=== PATIENT | male | born 1970 | race Caucasian/White ===

== ENCOUNTER 2017-04-13 21:14 | Emergency (ER) | payer MEDICAID ==
[~2017-04-13] VITALS: Ht 170.2 cm; Wt 77.3 kg
[2017-04-13] MEDS ORDERED: FURO40I IM (21:42)
[2017-04-13] MEDS ORDERED: WARF2 PO (21:42)
[2017-04-13] MEDS ORDERED: ASPI81 PO (21:42)
[2017-04-14] MEDS ORDERED: ACETAMINOPHEN 500 MG TABLET PO ONE
[2017-04-14 02:20] LABS: BASOPHILS % (AUTO) 0.8 % (0.0-2.0); EOSINOPHILS % (AUTO) 3.1 % (1.0-6.0); HEMATOCRIT 42.7 % (41-53); HEMOGLOBIN 14.7 g/dL (13.5-17.5); LYMPHOCYTES # (AUTO) 1.7 K/uL (1.0-4.8); LYMPHOCYTES % (AUTO) 24.1 % (22.0-44.0); MEAN CORPUSCULAR HEMOGLOBIN 29.2 pg (26.0-34.0); MEAN CORPUSCULAR HGB CONC 34.3 G/dL (31.0-37.0); MEAN CORPUSCULAR VOLUME 85 fL (80-100); MONOCYTES # (AUTO) 0.7 K/uL (0.1-1.0); MONOCYTES % (AUTO) 10.4 % (2.0-9.0); NEUTROPHILS # (AUTO) 4.4 K/uL (1.8-7.7); NEUTROPHILS % (AUTO) 61.6 % (40.0-70.0); PLATELET COUNT (AUTO) 158 K/uL (150-450); RED BLOOD CELL COUNT(AUTO) 5.02 MIL/uL (4.50-5.90); RED CELL DISTRIBUTION WIDTH 13.3 % (11.5-14.5); WHITE BLOOD COUNT (AUTO) 7.2 K/uL (4.5-11.0)
[2017-04-14 02:33] LABS: INR 3.1 (0.9-1.1); PROTHROMBIN TIME 32.6 SEC (9.4-11.6)
[2017-04-14 02:34] LABS: ANION GAP 9 mmol/L (8-16); CALCIUM, TOTAL 9.2 mg/dL (8.8-10.5); CARBON DIOXIDE 28 mmol/L (22-29); CHLORIDE 101 mmol/L (98-107); CREATININE 1.02 mg/dL (0.60-1.30); GLOMERULAR FILTR. RATE CALC > 60 mL/min (>60); POTASSIUM 3.3 mmol/L (3.5-5.1); SODIUM SERUM 138 mmol/L (136-145); UREA NITROGEN, BLOOD 14 mg/dL (7-18)
[2017-04-14 02:39] LABS: ALANINE AMINOTRANSFERASE 30 U/L (12-78); ALBUMIN 4.2 g/dL (3.4-5.0); ASPARTATE AMINOTRANSFERASE 19 U/L (15-37); BILIRUBIN,TOTAL 1.6 mg/dL (0.1-1.0); TOTAL PROTEIN, SERUM 7.9 g/dL (6.4-8.2)
[2017-04-14 02:42] LABS: LACTIC ACID 0.8 mmol/L (0.4-2.0)
[2017-04-14 02:45] LABS: B-TYPE NATRIURETIC PEPTIDE 29 pg/mL (0-100)
[2017-04-14] MEDS ORDERED: SODIUM CHLORIDE 0.9% 100 ML ONE (02:47)
[2017-04-14] MEDS ORDERED: IOVERSOL 350 MG/ML 100 ML VIAL ONE (02:47)
[2017-04-14 03:34] LABS: PROCALCITONIN (PCT) < 0.05 ng/mL (<0.50)
[2017-04-14 04:05] VITALS: BP 119/70
== END 2017-04-14 04:46 | disposition home or self-care (01) ==
LOC: EMS 21:20
DX: I51.7 Cardiomegaly (principal); I42.9 Cardiomyopathy, unspecified; J40 Bronchitis, not specified as acute or chronic; I51.9 Heart disease, unspecified; Z95.2 Presence of prosthetic heart valve; Z79.82 Long term (current) use of aspirin
CPT/HCPCS: 36415; 71020; 71260; 80053; 83605; 83690; 83880; 84145; 84484; 85025; 85610; 85730; 87040; 99285; G0480; J7050; Q9967